=== PATIENT | female | born 1970 | race African-American/Black ===

== ENCOUNTER 2022-05-05 13:43 | Emergency (ER) | payer OTHER ==
[~2022-05-05] VITALS: Ht 157.5 cm; Wt 110.0 kg
[~2022-05-05 13:43] MED LIST: LISINOPRIL
[2022-05-05] MEDS ORDERED: HYDRALAZINE 20MG/ML VIAL IV ONE (14:15)
[2022-05-05 14:30] LABS: BASOPHILS % 0.7 % (0.0-2.0); EOSINOPHILS % 14.2 % (0.0-5.0); HEMATOCRIT. 28.6 % (36.0-48.0); HEMOGLOBIN. 8.7 g/dL (12.0-16.0); MEAN CORPUSCULAR HEMOGLOBIN 25.9 pg (28.0-32.0); MEAN CORPUSCULAR VOLUME 84.7 fL (81.0-99.0); MONOCYTES % 5.8 % (2.0-8.0); NEUTROPHILS % 67.3 % (40.0-76.0); PLATELET 257 x1000/uL (130-400); RED BLOOD CELL COUNT 3.37 mill/uL (4.2-5.4); RED CELL DISTRIBUTION WIDTH 16.9 % (11.6-14.6)
[2022-05-05 14:32] LABS: CHLORIDE 108 mEq/L (98-107)
[2022-05-05 14:36] LABS: HCG SCREEN NEGATIVE
[2022-05-05 14:46] VITALS: BP 249/131
== END 2022-05-05 14:48 | disposition left against medical advice (07) ==
LOC: ER 13:43
DX: I21.4 Non-ST elevation (NSTEMI) myocardial infarction (principal); I12.9 Hypertensive chronic kidney disease with stage 1 through stage 4 chronic kidney disease, or unspecified chronic kidney disease; E11.649 Type 2 diabetes mellitus with hypoglycemia without coma; G93.41 Metabolic encephalopathy; N18.9 Chronic kidney disease, unspecified
CPT/HCPCS: 36415; 71045; 80053; 82962; 83880; 84484; 84703; 85025; 93005; 99285